=== PATIENT | female | born 1995 | race Caucasian/White ===

== ENCOUNTER 2016-10-09 14:34 | Emergency (ER) | payer OTHER ==
[2016-10-09 14:38] VITALS: BP 125/71; BMI 35.6
--- NOTE | 2016-10-09 14:47 | DR.GENAD ---
HPI - HPI Comment HPI Comment: N/V/D TIMES 3 DAYS. LOWER ABDOMINAL PAIN TODAY. SLIGHT DYSURIA. PATIENT ALSO HAVIVBG VAGINAL DISCHARGE. SYMTOMS WORSE TODAY. PATIENT IS WEAK. - Complaint/Symptoms Chief Complaint Doctors Comments: N/V/D FOR 3 DAYS AND LOWER ABD PAIN AND VAGINAL DISCHARGE. Chief Complaint:: 23 6/7 OB C/O N/V/D X 2-3 DAYS WITH A VAGINAL DISCHARGE AND DYSURIA. PT. ALSO C/O LOWER ABDOMINAL PAIN AND LOWER BACK PAIN. DENIES VAGINAL BLEEDING. - Nurses notes reviewed Nurses Notes Review: Yes - Source History Provided: Patient - Mode of Arrival Mode of Arrival: Ambulatory - Timing Onset of Chief Complaint: 10/06/16 Came on: Suddenly - Duration Duration: Constant Duration: Days - Severity Severity: Moderate PMH - PMH Past Medical History: No Past Surgical History: Yes Surgical History: - Family History History of Family Medical Conditions: Yes Family Medical History: Diabetes Mellitus, Cancer, Coronary Artery Disease, Sudden Cardiac - Social History Does patient currently use any type of tobacco product: No Have you used tobacco products in the last 12 months: No Type of Tobacco Use: None Does any household member use tobacco: No Alcohol Use: None Do you use any recreational Drugs:: No Lives With: Family Lives Where: Home - infectious screening In the last 2 months have you had wt loss of >10#?: NO Have you had fever, night sweats or hemotysis?: No Have you traveled outside the country in the last 6 months?: No Isolation: Standard ROS - Review of Systems Constitutional: Weakness, Fatigue Eyes: No Symptoms Reported. negative: Eye Pain, Discharge ENTM: No Symptoms Reported. negative: Ear Pain, Nose Discharge, Nose Congestion , Throat Pain Respiratoy: No Symptoms Reported. negative: Productive Cough, Non-Productive Cough, Short of Breath, Wheezing, Hemoptysis Cardiovascular: negative: Chest Pain Gastrointestinal/Abdominal: Abdominal Pain, Nausea, Vomiting Genitourinary: No Symptoms Reported. negative: Dysuria, Frequency, Hematuria Neurological: Weakness, Dizziness. negative: Headache Musculoskeletal: Muscle Pain Integumentary: Dryness. negative: Bruises, Juandice Hematologic/Lymphatic: No Symptoms Reported Endocrine: No Symptoms Reported All Other Systems: Reviewed and Negative PE - Vital Signs Vitals: Pulse Rate 111 Respiratory Rate 18 Blood Pressure [Left Arm] 119/66 Blood Pressure [Right Arm] 113/66 Blood Pressure 125/71 O2 Sat by Pulse Oximetry 99 - General Limitations: No Limitations General Appearance: Alert - Head Head Exam: Normal Inspection - Eyes Eye exam: Normal Appearance - ENT ENT Exam: Normal External Ear Exam External Ear Exam: Normal External Inspection TM/Canal Exam: Bilateral Normal Nose Exam: Normal Nose Exam Mouth Exam: Normal Inspection Throat Exam: Normal Inspection - Neck Neck Exam: Trachea Midline - Chest Chest Inspection: Symmetric Chest Wall Rise - Respiratory Respiratory Exam: Normal Lung Sounds Bilat Respiratory Exam: Bilateral Clear to Auscultation - Cardiovascular Cardiovascular Exam: Regular Rate, Normal Rhythm, Normal Heart Sounds - Abdominal Exam Abdominal Exam: Normal Bowel Sounds, Soft, Tenderness Abdominal Tenderness: RLQ, LLQ, Suprapubic - Extremities Extremities Exam: Normal Inspection - Back Back Exam: Normal Inspection - Neurologic Neurological Exam: Alert, Oriented X3 - Psychiatric Psychiatric Exam: Normal Affect, Normal Mood - Skin Skin Exam: Normal Color MDM - Differential Diagnosis Differential Diagnosis: ABDOMINAL PAIN DURING , DEHYDRATION, UTI Course - Treatment Treatment: SEE ORDERS. - Education/Counseling Education/Counseling: Patient, Education Educated On: Treatment, Diagnosis, Needs for Follow Up ROR - Labs Reviewed Laboratory Results Reviewed?: Yes Result Diagrams: 10/09/16 15:12 10/09/16 15:12 Laboratory: WBC 13.9 X10^3/uL (3.6-10.0) H 10/09/16 15:12 RBC 3.87 X10^6/uL (3.5-5.4) 10/09/16 15:12 Hgb 10.8 g/dL (12.0-16.0) L 10/09/16 15:12 Hct 31.9 % (36.0-47.0) L 10/09/16 15:12 MCV 82.6 fL (80.0-100.0) 10/09/16 15:12 MCH 27.8 pg (27.0-34.0) 10/09/16 15:12 MCHC 33.7 g/dL (33.0-35.0) 10/09/16 15:12 RDW 13.5 % (11.6-16.5) 10/09/16 15:12 Plt Count 323 X10^3/uL (150.0-450.0) 10/09/16 15:12 MPV 9.1 fL (7.4-11.0) 10/09/16 15:12 Neut % 78.6 % (42.0-75.0) H 10/09/16 15:12 Lymph % 11.2 % (21.0-51.0) L 10/09/16 15:12 Johnson % 6.0 % (0.0-13.0) 10/09/16 15:12 Eos % 3.2 % (0.9-2.9) H 10/09/16 15:12 Baso % 1.0 % (0.2-1.0) 10/09/16 15:12 Neut # 10.9 x10^3/uL (2.2-4.8) H 10/09/16 15:12 Lymph # 1.6 X10^3/uL (1.3-2.9) 10/09/16 15:12 Johnson # 0.8 x10^3/uL (0.3-0.8) 10/09/16 15:12 Eos # 0.4 x10^3/uL (0.0-0.2) H 10/09/16 15:12 Baso # 0.1 X10^3/uL (0.0-0.1) 10/09/16 15:12 Absolute Nucleated RBC 0.0 /100WBC 10/09/16 15:12 Sodium 137 mmol/L (136-145) 10/09/16 15:12 Corrected Sodium TNP 10/09/16 15:12 Potassium 4.0 mmol/L (3.5-5.1) 10/09/16 15:12 Chloride 104 mmol/L (98-107) 10/09/16 15:12 Carbon Dioxide 25.4 mmol/L (21-32) 10/09/16 15:12 BUN 4 mg/dL (7-18) L 10/09/16 15:12 Creatinine 0.56 mg/dL (0.55-1.02) 10/09/16 15:12 Est GFR (MDRD) Af Amer > 60 (>60) 10/09/16 15:12 Est GFR (MDRD) Non-Af > 60 (>60) 10/09/16 15:12 Glucose 78 mg/dL (65-99) 10/09/16 15:12 Calcium 8.4 mg/dL (8.5-10.1) L 10/09/16 15:12 Corrected Calcium 9.4 mg/dL (8.5-10.1) 10/09/16 15:12 Total Bilirubin 0.10 mg/dL (0.2-1.0) L 10/09/16 15:12 AST 16 Units/L (15-37) 10/09/16 15:12 ALT 16 Units/L (12-78) 10/09/16 15:12 Alkaline Phosphatase 86 Units/L (46-116) 10/09/16 15:12 Total Protein 7.2 g/dL (6.4-8.2) 10/09/16 15:12 Albumin 2.8 g/dL (3.4-5.0) L 10/09/16 15:12 Globulin 4.4 g/dL (2.5-4.5) 10/09/16 15:12 Albumin/Globulin Ratio 0.6 Ratio (1.1-2.1) L 10/09/16 15:12 HCG, Quant 21494 mIU/mL (0-6) H 10/09/16 15:12 Specimen Type Clean catch urine 10/09/16 14:50 Urine Color Yellow (YELLOW) 10/09/16 14:50 Urine Appearance Cloudy (CLEAR) 10/09/16 14:50 Urine pH 5.0 (5.0 - 8.0) 10/09/16 14:50 Ur Specific [place] 1.030 (1.000-1.030) 10/09/16 14:50 Urine Protein 4+ (NEGATIVE) 10/09/16 14:50 Urine Glucose (UA) Negative (NEGATIVE) 10/09/16 14:50 Urine Ketones Negative (NEGATIVE) 10/09/16 14:50 Urine Occult Blood 5+ (NEGATIVE) 10/09/16 14:50 Urine Nitrite Negative (NEGATIVE) 10/09/16 14:50 Urine Bilirubin Negative (NEGATIVE) 10/09/16 14:50 Urine Urobilinogen 1+ (NORMAL) 10/09/16 14:50 Ur Leukocyte Esterase 3+ (NEGATIVE) 10/09/16 14:50 Urine RBC 6-10 /HPF (NEGATIVE) 10/09/16 14:50 Urine WBC 25-50 /HPF (NEGATIVE) 10/09/16 14:50 Ur Squamous Epith Cells Rare /HPF (NEGATIVE) 10/09/16 14:50 Calcium Oxalate Crystal Few /HPF (NEGATIVE) 10/09/16 14:50 Urine Bacteria Trace /HPF (NEGATIVE) 10/09/16 14:50 Ur Culture Indicated? Yes/culture set up 10/09/16 14:50 - XRAY XRAY Interpreted by: Radiologist XRAY Findings: REPORT DISCUSS WOITH PATIENT. - Diagnosis Discharge Problem: Abdominal pain affecting , Dehydration Gastritis Qualifiers: Gastritis type: other gastritis Chronicity: acute Gastritis bleeding: without bleeding Qualified Code(s): K29.00 - Acute gastritis without bleeding UTI (urinary tract infection) Qualifiers: Urinary tract infection type: site unspecified Hematuria presence: without hematuria Qualified Code(s): N39.0 - Urinary tract infection, site not specified - Discharge Plan Disposition: 01 HOME, SELF-CARE Condition: Stable Prescriptions: Nitrofurantoin Macro [Macrobid Cap 100 mg Ext Rel] 100 mg PO BID #14 cap - Follow ups/Referrals Follow ups/Referrals: IRENA BRADEN [Primary Care Provider] - 3 days - Instructions Instructions: Urinary Tract Infection, [id number], Dehydration, Adult, Easy- to-Read, Abdominal Pain During , [id number] Additional Instructions: RETURN TO ED IF WORSE.
[2016-10-09 15:06] LABS: BILIRUBIN,URINE NEGATIVE (NEGATIVE); BLOOD/HEMOGLOBIN,URINE 5+ (NEGATIVE); GLUCOSE, URINE NEGATIVE (NEGATIVE); KETONES,URINE NEGATIVE (NEGATIVE); LEUKOCYTE ESTERASE ,URINE 3+ (NEGATIVE); NITRITES,URINE NEGATIVE (NEGATIVE); PROTEIN,URINE 4+ (NEGATIVE); UROBILINOGEN,URINE 1+ (NORMAL)
[2016-10-09 15:14] LABS: APPEARANCE,URINE CLOUDY (CLEAR); BACTERIA,URINE TRACE /HPF (NEGATIVE); CALCIUM OXALATE CRYSTALS,UR FEW /HPF (NEGATIVE); COLOR,URINE YELLOW (YELLOW); SQUAMOUS EPITHELIAL CELL,UR RARE /HPF (NEGATIVE)
[2016-10-09 15:23] LABS: BASOPHILS # (AUTO) 0.1 X10^3/uL (0.0-0.1); EOSINOPHILS # (AUTO) 0.4 x10^3/uL (0.0-0.2); EOSINOPHILS % (AUTO) 3.2 % (0.9-2.9); HEMATOCRIT 31.9 % (36.0-47.0); HEMOGLOBIN 10.8 g/dL (12.0-16.0); LYMPHOCYTES # (AUTO) 1.6 X10^3/uL (1.3-2.9); LYMPHOCYTES % (AUTO) 11.2 % (21.0-51.0); MEAN CORPUSCULAR HEMOGLOBIN 27.8 pg (27.0-34.0); MEAN CORPUSCULAR HGB CONC 33.7 g/dL (33.0-35.0); MEAN CORPUSCULAR VOLUME 82.6 fL (80.0-100.0); MEAN PLATELET VOLUME 9.1 fL (7.4-11.0); MONOCYTES # (AUTO) 0.8 x10^3/uL (0.3-0.8); NEUTROPHILS # (AUTO) 10.9 x10^3/uL (2.2-4.8); NEUTROPHILS % (AUTO) 78.6 % (42.0-75.0); PLATELET COUNT 323 X10^3/uL (150.0-450.0); RED BLOOD COUNT 3.87 X10^6/uL (3.5-5.4); RED CELL DISTRIBUTION WIDTH 13.5 % (11.6-16.5); WHITE BLOOD COUNT 13.9 X10^3/uL (3.6-10.0)
[2016-10-09 15:32] LABS: ALANINE AMINOTRANSFERASE 16 Units/L (12-78); ALBUMIN 2.8 g/dL (3.4-5.0); ALKALINE PHOSPHATASE 86 Units/L (46-116); ASPARTATE AMINO TRANSFERASE 16 Units/L (15-37); BLOOD UREA NITROGEN 4 mg/dL (7-18); CALCIUM 8.4 mg/dL (8.5-10.1); CARBON DIOXIDE 25.4 mmol/L (21-32); CHLORIDE 104 mmol/L (98-107); COR CA(FOR HYPOALB) 9.4 mg/dL (8.5-10.1); CREATININE 0.56 mg/dL (0.55-1.02); GLUCOSE 78 mg/dL (65-99); SODIUM 137 mmol/L (136-145); TOTAL PROTEIN 7.2 g/dL (6.4-8.2); eGFR BLACK RACES > 60 (>60); eGFR NON BLACK RACES > 60 (>60)
[2016-10-09] MEDS ORDERED: NS 1000 ML 1,000 ML IV ONE (15:43)
[2016-10-09] MEDS ORDERED: ROCEPHIN VIAL 1 GM 1 GM in NS 50 ML IV + SPIKE MINIBAG* 50 ML IV ONE (15:50)
[2016-10-09 15:59] LABS: HCG,QUANTITATIVE 14219 mIU/mL (0-6)
[2016-10-09] MEDS ORDERED: ROCEPHIN 1 GM IV PREMIX * OUT OF STOCK 50 ML IV ONE (16:12)
[2016-10-09] MEDS ORDERED: NS 1000 ML 1,000 ML ONE (16:13)
[2016-10-09] MEDS ORDERED: ADVIL SUSP 100 MG/5 ML PO ONE (16:37)
--- NOTE | 2016-10-09 17:06 | US ---
OB ultrasound greater than 14 weeks Indication: Abdominal pain Comparison: None available Technique: Multiple grayscale and color flow Doppler images of the pelvis were obtained with focused evaluation of the fetus. Findings: A viable single intrauterine is identified with heart tones of 148 beats per minute. A breech presentation is observed with a anterior and fundal placenta. No retroplacental or subchron ic hemorrhage identified. Normal 3 vessel cord insertion is noted. Value Estimated Gestational Age BPD 5.6 cm 23 weeks, 2 days HC 21.3 cm 23 weeks, 3 days AC 18.4 cm 23 weeks, 2 days FL 4.1 cm 23weeks, 2 days IMPRESSION: A viable single intrauterine with an average ultrasound age of 23 weeks, 2 days correspond to an estimated date of delivery of DATE. No retroplacental or subchronic hemorrhage. Reported By:
== END 2016-10-09 17:57 | disposition home or self-care (01) ==
LOC: ER 14:40
DX: R10.84 Generalized abdominal pain (principal); Z3A.23 23 weeks gestation of pregnancy; N39.0 Urinary tract infection, site not specified; K29.00 Acute gastritis without bleeding; E86.0 Dehydration
CPT/HCPCS: 36415; 76815; 80053; 81001; 84702; 85025; 87086; 96365; 96374; 99283; 99284; A4222; J0696

== ENCOUNTER 2016-12-17 23:45 | Emergency (ER) | payer OTHER ==
[2016-12-17 23:50] VITALS: BP 131/98; BMI 37.6
[2016-12-18 00:21] LABS: BILIRUBIN,URINE NEGATIVE (NEGATIVE); BLOOD/HEMOGLOBIN,URINE NEGATIVE (NEGATIVE); GLUCOSE, URINE NEGATIVE (NEGATIVE); KETONES,URINE NEGATIVE (NEGATIVE); LEUKOCYTE ESTERASE ,URINE 1+ (NEGATIVE); NITRITES,URINE NEGATIVE (NEGATIVE); PROTEIN,URINE 1+ (NEGATIVE); UROBILINOGEN,URINE NORMAL (NORMAL)
[2016-12-18 00:28] LABS: APPEARANCE,URINE CLEAR (CLEAR); BACTERIA,URINE TRACE /HPF (NEGATIVE); COLOR,URINE YELLOW (YELLOW); RBC,URINE 0-3 /HPF (NEGATIVE); SQUAMOUS EPITHELIAL CELL,UR MANY /HPF (NEGATIVE)
[2016-12-18 00:32] LABS: AMNISURE ROM TEST NO MEMBRANES RUPTURE (NO RUPTURE)
== END 2016-12-18 01:38 | disposition home or self-care (01) ==
LOC: ER 23:45
DX: O60.03 Preterm labor without delivery, third trimester (principal)
CPT/HCPCS: 81001; 84112; 99284

== ENCOUNTER 2017-01-04 14:44 | Emergency (ER) | payer OTHER ==
[2017-01-04] MEDS ORDERED: NS 1000 ML 1,000 ML ONE (15:01)
[2017-01-04] MEDS ORDERED: NS 1000 ML 1,000 ML IV ONE (15:11)
--- NOTE | 2017-01-04 15:13 | DR.GENAD ---
PMH - PMH Past Surgical History: Yes Surgical History: - Family History Family Medical History: Diabetes Mellitus, Cancer, [place], Hypertension - Social History Do you use any recreational Drugs:: No PE - Vital Signs Vitals: Blood Pressure [Left Arm] 119/66 Blood Pressure [Right Arm] 113/66 Blood Pressure 131/98 - Discharge Plan Condition: Stable - Follow ups/Referrals Follow ups/Referrals: IRENA BRADEN [Primary Care Provider] - 3 days - Instructions
[2017-01-04 15:14] VITALS: BP 143/92; BMI 39.1
[2017-01-04 15:25] LABS: BILIRUBIN,URINE NEGATIVE (NEGATIVE); BLOOD/HEMOGLOBIN,URINE 1+ (NEGATIVE); GLUCOSE, URINE NEGATIVE (NEGATIVE); KETONES,URINE NEGATIVE (NEGATIVE); LEUKOCYTE ESTERASE ,URINE 2+ (NEGATIVE); NITRITES,URINE NEGATIVE (NEGATIVE); PH,URINE 6.5 (5.0 - 8.0); PROTEIN,URINE 1+ (NEGATIVE); UROBILINOGEN,URINE NORMAL (NORMAL)
[2017-01-04 15:32] LABS: APPEARANCE,URINE CLOUDY (CLEAR); BACTERIA,URINE 3+ /HPF (NEGATIVE); COLOR,URINE YELLOW (YELLOW); SQUAMOUS EPITHELIAL CELL,UR FEW /HPF (NEGATIVE)
[2017-01-04 15:33] LABS: BASOPHILS # (AUTO) 0.1 X10^3/uL (0.0-0.1); BASOPHILS % (AUTO) 0.5 % (0.2-1.0); EOSINOPHILS # (AUTO) 0.3 x10^3/uL (0.0-0.2); EOSINOPHILS % (AUTO) 2.7 % (0.9-2.9); HEMATOCRIT 28.2 % (36.0-47.0); HEMOGLOBIN 9.4 g/dL (12.0-16.0); LYMPHOCYTES # (AUTO) 1.5 X10^3/uL (1.3-2.9); LYMPHOCYTES % (AUTO) 13.7 % (21.0-51.0); MEAN CORPUSCULAR HEMOGLOBIN 26.4 pg (27.0-34.0); MEAN CORPUSCULAR HGB CONC 33.3 g/dL (33.0-35.0); MEAN CORPUSCULAR VOLUME 79.3 fL (80.0-100.0); MEAN PLATELET VOLUME 9.6 fL (7.4-11.0); MONOCYTES # (AUTO) 0.9 x10^3/uL (0.3-0.8); NEUTROPHILS # (AUTO) 8.4 x10^3/uL (2.2-4.8); NEUTROPHILS % (AUTO) 75.1 % (42.0-75.0); PLATELET COUNT 265 X10^3/uL (150.0-450.0); RED BLOOD COUNT 3.56 X10^6/uL (3.5-5.4); RED CELL DISTRIBUTION WIDTH 14.3 % (11.6-16.5); WHITE BLOOD COUNT 11.1 X10^3/uL (3.6-10.0)
[2017-01-04 15:48] LABS: ALANINE AMINOTRANSFERASE 15 Units/L (12-78); ALBUMIN 2.5 g/dL (3.4-5.0); ALKALINE PHOSPHATASE 109 Units/L (46-116); ASPARTATE AMINO TRANSFERASE 18 Units/L (15-37); BLOOD UREA NITROGEN 6 mg/dL (7-18); CALCIUM 8.8 mg/dL (8.5-10.1); CHLORIDE 108 mmol/L (98-107); CREATININE 0.76 mg/dL (0.55-1.02); LACTATE DEHYDROGENASE 162 Units/L (81-234); SODIUM 139 mmol/L (136-145); TOTAL PROTEIN 6.6 g/dL (6.4-8.2); URIC ACID 4.9 mg/dL (2.6-6.0); eGFR BLACK RACES > 60 (>60); eGFR NON BLACK RACES > 60 (>60)
[2017-01-04] MEDS ORDERED: BRETHINE INJ 1 MG VIAL SC ONE ×2 (15:55→15:56)
== END 2017-01-04 16:15 | disposition home or self-care (01) ==
LOC: ER 14:59
DX: O60.03 Preterm labor without delivery, third trimester (principal); Z3A.36 36 weeks gestation of pregnancy
CPT/HCPCS: 36415; 80053; 81001; 83615; 84550; 85025; 85384; 85610; 85730; 87086; 96365; 96372; 99284; A4222; J3105

== ENCOUNTER → 2017-01-20 | Outpatient (CLI) | payer OTHER ==
[2017-01-04 15:14] VITALS: BP 143/92
[2017-01-20 11:55] LABS: BASOPHILS % (AUTO) 0.3 % (0.2-1.0); EOSINOPHILS # (AUTO) 0.1 x10^3/uL (0.0-0.2); EOSINOPHILS % (AUTO) 1.4 % (0.9-2.9); HEMATOCRIT 29.9 % (36.0-47.0); HEMOGLOBIN 9.8 g/dL (12.0-16.0); LYMPHOCYTES # (AUTO) 1.5 X10^3/uL (1.3-2.9); LYMPHOCYTES % (AUTO) 14.4 % (21.0-51.0); MEAN CORPUSCULAR HEMOGLOBIN 25.8 pg (27.0-34.0); MEAN CORPUSCULAR HGB CONC 32.9 g/dL (33.0-35.0); MEAN CORPUSCULAR VOLUME 78.5 fL (80.0-100.0); MONOCYTES # (AUTO) 0.5 x10^3/uL (0.3-0.8); MONOCYTES % (AUTO) 5.3 % (0.0-13.0); NEUTROPHILS # (AUTO) 8.1 x10^3/uL (2.2-4.8); NEUTROPHILS % (AUTO) 78.6 % (42.0-75.0); PLATELET COUNT 240 X10^3/uL (150.0-450.0); RED BLOOD COUNT 3.81 X10^6/uL (3.5-5.4); RED CELL DISTRIBUTION WIDTH 14.7 % (11.6-16.5); WHITE BLOOD COUNT 10.2 X10^3/uL (3.6-10.0)
[2017-01-20 12:00] LABS: BILIRUBIN,URINE NEGATIVE (NEGATIVE); BLOOD/HEMOGLOBIN,URINE NEGATIVE (NEGATIVE); GLUCOSE, URINE 1+ (NEGATIVE); KETONES,URINE NEGATIVE (NEGATIVE); LEUKOCYTE ESTERASE ,URINE 1+ (NEGATIVE); NITRITES,URINE NEGATIVE (NEGATIVE); PROTEIN,URINE 2+ (NEGATIVE); UROBILINOGEN,URINE NORMAL (NORMAL)
[2017-01-20 12:00] LABS: BLOOD UREA NITROGEN 6 mg/dL (7-18); CARBON DIOXIDE 23.6 mmol/L (21-32); CHLORIDE 105 mmol/L (98-107); CREATININE 0.75 mg/dL (0.55-1.02); SODIUM 140 mmol/L (136-145); eGFR BLACK RACES > 60 (>60); eGFR NON BLACK RACES > 60 (>60)
[2017-01-20 12:04] LABS: PLATELET MORPHOLOGY COMMENT NORMAL (NORMAL)
[2017-01-20 12:16] LABS: APPEARANCE,URINE CLOUDY (CLEAR); COLOR,URINE YELLOW (YELLOW)
[2017-01-20 12:21] LABS: RBC,URINE RARE /HPF (NEGATIVE)
[2017-01-20 12:22] LABS: AMORPHOUS SEDIMENT,UR 3+ /HPF (NEGATIVE); BACTERIA,URINE 1+ /HPF (NEGATIVE); HYALINE CASTS, URINE RARE /LPF (NEGATIVE); MUCUS,URINE MODERATE /HPF (NEGATIVE); SQUAMOUS EPITHELIAL CELL,UR MANY /HPF (NEGATIVE)
== END ==
LOC: LAB 11:06
PROVIDERS: ATTEND Specialist
DX: Z01.818 Encounter for other preprocedural examination (principal); Z01.812 Encounter for preprocedural laboratory examination; Z34.83 Encounter for supervision of other normal pregnancy, third trimester
CPT/HCPCS: 36415; 80048; 81001; 85025; 85610; 85730; 86592; 86850; 86900; 86901; 87086

== ENCOUNTER 2017-01-23 06:20 | Inpatient (IN) | payer OTHER ==
[2017-01-23] MEDS ORDERED: LR 1000 ML IV 1,000 ML IV ONE ×3 (06:21→08:25)
[2017-01-23] MEDS ORDERED: ANCEF VIAL 1 GM ONE (06:22)
[2017-01-23] MEDS ORDERED: NS 50 ML IV + SPIKE MINIBAG* 50 ML IV ONE (06:23)
[2017-01-23] MEDS ORDERED: ANCEF VIAL 1 GM 1 GM in NS 50 ML IV + SPIKE MINIBAG* 50 ML IV PRN (06:53)
[2017-01-23] MEDS ORDERED: D5 1/2 NS 1000 ML 1,000 ML IV SCH (06:53)
[2017-01-23] MEDS ORDERED: D5 1/2 NS 1L W PITOCIN 20 UNITS/L 20 UNITS/1,000 ML BAG IV ONE (07:38)
[2017-01-23] MEDS ORDERED: DURAMORPH ONE (07:38)
[2017-01-23] MEDS ORDERED: NS IRRIGATION 1000 ML 1,000 ML IR ONE (08:00)
[2017-01-23 08:12] LABS: BILIRUBIN,URINE NEGATIVE (NEGATIVE); BLOOD/HEMOGLOBIN,URINE NEGATIVE (NEGATIVE); GLUCOSE, URINE NEGATIVE (NEGATIVE); KETONES,URINE NEGATIVE (NEGATIVE); LEUKOCYTE ESTERASE ,URINE 1+ (NEGATIVE); NITRITES,URINE NEGATIVE (NEGATIVE); PROTEIN,URINE 1+ (NEGATIVE); UROBILINOGEN,URINE NORMAL (NORMAL)
[2017-01-23 08:34] LABS: APPEARANCE,URINE CLOUDY (CLEAR); COLOR,URINE YELLOW (YELLOW); RBC,URINE RARE /HPF (NEGATIVE)
[2017-01-23 08:36] LABS: AMORPHOUS SEDIMENT,UR TRACE /HPF (NEGATIVE); BACTERIA,URINE NEGATIVE /HPF (NEGATIVE); MUCUS,URINE FEW /HPF (NEGATIVE); RENAL EPITHELIAL CELLS,URINE FEW /HPF (NEGATIVE); SQUAMOUS EPITHELIAL CELL,UR FEW /HPF (NEGATIVE)
[2017-01-23] MEDS ORDERED: DILAUDID INJ IVP PRN (09:02)
[2017-01-23] MEDS ORDERED: BENADRYL INJ 50 MG VIAL IVP PRN ×2 (09:02→09:23)
[2017-01-23] MEDS ORDERED: PHENERGAN INJ 25 MG IVP PRN (09:02)
[2017-01-23] MEDS ORDERED: ZOFRAN INJ 4 MG VIAL IVP PRN ×2 (09:02→09:23)
[2017-01-23] MEDS ORDERED: REGLAN INJ 10 MG VIAL IVP PRN ×2 (09:02→09:23)
[2017-01-23] MEDS ORDERED: TORADOL 30 MG VIAL IVP PRN (09:23)
[2017-01-23] MEDS ORDERED: MYLICON TAB 80 MG CHEW PO PRN (09:23)
[2017-01-23] MEDS ORDERED: PERCOCET TAB 5/325 MG PO PRN (09:23)
[2017-01-23] MEDS ORDERED: D5 1/2 NS 1000 ML 1,000 ML with PITOCIN 20 UNITS IV SCH ×2 (09:23)
[2017-01-23] MEDS ORDERED: ADACEL TDaP IM ONE (09:23)
[2017-01-23] MEDS ORDERED: NARCAN INJ IVP PRN (09:23)
[2017-01-23] MEDS: ZANTAC PO SCH ×2 (10:30→20:19)
[2017-01-23] MEDS: PRENATAL PLUS PO SCH (10:30)
[2017-01-23] MEDS ORDERED: DIPRIVAN VIAL ONE (14:46)
[2017-01-23] MEDS ORDERED: ZOFRAN INJ 4 MG VIAL ONE (14:46)
[2017-01-23] MEDS ORDERED: EPHEDRINE SULFATE INJ ONE (14:46)
[2017-01-23] MEDS ORDERED: PITOCIN ONE (14:46)
[2017-01-23] MEDS ORDERED: NEO-SYNEPHRINE INJ ONE (14:46)
[2017-01-23] MEDS ORDERED: XYLOCAINE 2 % (PLAIN) ONE (14:46)
[2017-01-24 05:21] LABS: HEMATOCRIT 26.3 % (36.0-47.0); HEMOGLOBIN 8.6 g/dL (12.0-16.0)
[2017-01-24] MEDS ORDERED: MOTRIN TAB 800 MG PO PRN (07:38)
[2017-01-24] MEDS: PERCOCET TAB 5/325 MG PO PRN ×2 (08:55→15:47)
[2017-01-24] MEDS: HEMOCYTE-PLUS PO SCH ×2 (08:55)
[2017-01-24] MEDS: ZANTAC PO SCH ×2 (08:55→20:08)
[2017-01-24] MEDS: PRENATAL PLUS PO SCH (08:55)
[2017-01-24] MEDS: COLACE CAP 100 MG PO SCH ×2 (08:55→20:08)
[2017-01-24] MEDS: BACTROBAN OINT TOP SCH ×2 (13:00→22:23)
[2017-01-25] MEDS: BACTROBAN OINT TOP SCH (05:32)
[2017-01-25] MEDS: COLACE CAP 100 MG PO SCH (08:32)
[2017-01-25] MEDS: ZANTAC PO SCH (08:32)
[2017-01-25] MEDS: PRENATAL PLUS PO SCH (08:32)
[2017-01-25] MEDS: HEMOCYTE-PLUS PO SCH (08:32)
[2017-01-25 08:43] VITALS: BP 114/71
== END 2017-01-25 10:30 | disposition home or self-care (01) | DRG 765 ==
LOC: LD 06:20 → MED/SURG 09:28
PROVIDERS: ADMIT Specialist; ATTEND Specialist
PROC: 10D00Z1 Extraction of Products of Conception, Low, Open Approach (ICD-10-PCS; principal; 2017-01-23 07:30)
DX: O40.3XX0 Polyhydramnios, third trimester, not applicable or unspecified (principal); Z37.0 Single live birth; O34.211 Maternal care for low transverse scar from previous cesarean delivery; N85.8 Other specified noninflammatory disorders of uterus; O98.311 Other infections with a predominantly sexual mode of transmission complicating pregnancy, first trimester; O99.824 Streptococcus B carrier state complicating childbirth; B95.1 Streptococcus, group B, as the cause of diseases classified elsewhere; N87.0 Mild cervical dysplasia; O99.89 Other specified diseases and conditions complicating pregnancy, childbirth and the puerperium; O33.5XX0 Maternal care for disproportion due to unusually large fetus, not applicable or unspecified; O99.013 Anemia complicating pregnancy, third trimester; D50.8 Other iron deficiency anemias; Z3A.38 38 weeks gestation of pregnancy
CPT/HCPCS: 36415; 80048; 80307; 81001; 85014; 85018; 85025; 85610; 85730; 86592; 86850; 86900; 86901; 87086; 94640; A4216; A4222; S0197; G0434; J0690; J2001; J2310; J2370; J2405; J2590; J2765; J3490; J7120

== ENCOUNTER 2017-01-26 22:42 | Emergency (ER) | payer OTHER ==
[2017-01-26 22:51] VITALS: BP 150/84; BMI 33.8
[2017-01-26] MEDS ORDERED: BENADRYL INJ 50 MG VIAL IM ONE (23:43)
--- NOTE | 2017-01-26 23:44 | DR.GENAD ---
HPI - PCP Primary Care Physician: ANDER - Complaint/Symptoms Chief Complaint:: RASH TO ABD ONSET WED Self Treatment fo Chief Complaint: CALAMINE LOTION, BENADRYL, - Source History Provided: Patient - Mode of Arrival Mode of Arrival: Ambulatory - Timing Onset of Chief Complaint: 01/25/17 PMH - PMH Past Medical History: No Past Surgical History: Yes Surgical History: - Family History History of Family Medical Conditions: Yes Family Medical History: Diabetes Mellitus, Coronary Artery Disease, Hypertension - Social History Does patient currently use any type of tobacco product: No Have you used tobacco products in the last 12 months: No Type of Tobacco Use: None Does any household member use tobacco: No Alcohol Use: None Do you use any recreational Drugs:: No Lives With: Family Lives Where: Home - infectious screening In the last 2 months have you had wt loss of >10#?: NO Have you had fever, night sweats or hemotysis?: No Have you traveled outside the country in the last 6 months?: No Isolation: Standard ROS - Review of Systems Constitutional: No Symptoms Reported Eyes: No Symptoms Reported ENTM: No Symptoms Reported Respiratoy: No Symptoms Reported Cardiovascular: No Symptoms Reported Gastrointestinal/Abdominal: No Symptoms Reported Genitourinary: No Symptoms Reported Neurological: No Symptoms Reported Musculoskeletal: No Symptoms Reported Integumentary: Rash (abdominal) Hematologic/Lymphatic: No Symptoms Reported Endocrine: No Symptoms Reported Psychiatric: No Symptoms Reported All Other Systems: Reviewed and Negative PE - Vital Signs Vitals: Temperature 98.1 F Pulse Rate 84 Respiratory Rate 16 Blood Pressure [Left Arm] 114/71 Blood Pressure [Right Arm] 113/66 Blood Pressure 150/84 O2 Sat by Pulse Oximetry 100 - General Limitations: No Limitations General Appearance: Alert, In No Apparent Distress - Head Head Exam: Normal Inspection, Atraumatic - Eyes Eye exam: Normal Appearance, PERRL, EOMI - ENT ENT Exam: Normal Exam External Ear Exam: Normal External Inspection TM/Canal Exam: Bilateral Normal Nose Exam: Normal Nose Exam Mouth Exam: Normal Inspection Throat Exam: Normal Inspection - Neck Neck Exam: Normal Inspection, Full ROM - Chest Chest Inspection: Normal Inspection - Respiratory Respiratory Exam: Normal Lung Sounds Bilat Respiratory Exam: Bilateral Clear to Auscultation - Cardiovascular Cardiovascular Exam: Regular Rate, Normal Rhythm - Abdominal Exam Abdominal Exam: Normal Inspection, Normal Bowel Sounds Abdominal Tenderness: negative: RUQ, RLQ, LUQ, LLQ, Epigastrium, Suprapubic, Diffuse, Mild, Moderate, Severe, Other - Extremities Extremities Exam: Normal Inspection - Back Back Exam: Normal Inspection, Full ROM - Neurologic Neurological Exam: Alert, Oriented X3, CN II-XII Intact - Psychiatric Psychiatric Exam: Normal Affect, Normal Mood - Skin Skin Exam: Warm, Dry, Intact, Rash (abdominal erythematus macular rash) - Diagnosis Discharge Problem: Dermatitis - Discharge Plan Condition: Stable - Follow ups/Referrals Follow ups/Referrals: IRENA BRADEN [Primary Care Provider] - 3 days - Instructions
[2017-01-26] MEDS ORDERED: BENADRYL INJ 50 MG VIAL ONE (23:45)
== END 2017-01-27 | disposition home or self-care (01) ==
LOC: ER 22:55
DX: L30.8 Other specified dermatitis (principal)
CPT/HCPCS: 96372; 99282; J1200

== ENCOUNTER 2017-05-30 08:57 | Emergency (ER) | payer SELFPAY ==
[2017-05-30 09:00] VITALS: BP 124/69; BMI 35.8
--- NOTE | 2017-05-30 09:23 | DR.URIAD ---
HPI - Time Seen Time seen: 09:18 - PCP Primary Care Physician: NFD - Complaint Chief Complaint Doctors Comments: Patient children were diagnosed on last night for influenza. Patient states that she was sent home from work due to her conges,tion,cough and generalized body aches. Chief Complaint:: PT. C/O SORE THROAT, COUGHING, FEVER, BODY ACHES. BOTH OF HER CHILDREN TESTED POSTED FOR INFLUENZA A RECENTLY. - Source History Provided: Patient - Mode of Arrival Mode of Arrival: Ambulatory - Timing Onset of Chief Complaint: 05/25/17 PMH - PMH Past Medical History: No Past Surgical History: Yes Surgical History: - Family History History of Family Medical Conditions: Yes Family Medical History: Diabetes Mellitus, Coronary Artery Disease, Hypertension - Social History Does patient currently use any type of tobacco product: No Have you used tobacco products in the last 12 months: No Type of Tobacco Use: None Does any household member use tobacco: No Alcohol Use: None Do you use any recreational Drugs:: No Lives With: Family Lives Where: Home - infectious screening In the last 2 months have you had wt loss of >10#?: NO Have you had fever, night sweats or hemotysis?: No Have you traveled outside the country in the last 6 months?: No Isolation: Standard ROS - Review of Systems Constitutional: Chills, Weakness Eyes: No Symptoms Reported ENTM: No Symptoms Reported Respiratoy: No Symptoms Reported Cardiovascular: No Symptoms Reported Gastrointestinal/Abdominal: No Symptoms Reported Genitourinary: No Symptoms Reported Neurological: No Symptoms Reported Musculoskeletal: Joint Pain Integumentary: No Symptoms Reported Hematologic/Lymphatic: No Symptoms Reported Endocrine: No Symptoms Reported Psychiatric: No Symptoms Reported All Other Systems: Reviewed and Negative PE - Vital Signs Vitals: Temperature 97.8 F Pulse Rate 93 Respiratory Rate 18 Blood Pressure [Left Arm] 114/71 Blood Pressure [Right Arm] 113/66 Blood Pressure 124/69 O2 Sat by Pulse Oximetry 97 - General Limitations: No Limitations General Appearance: Alert - Head Head Exam: Normal Inspection, Atraumatic - Eyes Eye exam: Normal Appearance, PERRL, EOMI - ENT ENT Exam: Normal Exam External Ear Exam: Normal External Inspection TM/Canal Exam: Bilateral Normal Nose Exam: Normal Nose Exam Nasal Speculum Exam: Bilateral Normal Mouth Exam: Normal Inspection Throat Exam: Normal Inspection - Neck Neck Exam: Normal Inspection - Chest Chest Inspection: Normal Inspection - Respiratory Respiratory Exam: Bilateral Clear to Auscultation - Cardiovascular Cardiovascular Exam: Regular Rate, Normal Rhythm - Abdominal Exam Abdominal Exam: Normal Inspection, Normal Bowel Sounds Abdominal Tenderness: negative: RUQ, RLQ, LUQ, LLQ, Epigastrium, Suprapubic, Diffuse, Mild, Moderate, Severe, Other - Extremeties Extremities Exam: Normal Inspection - Back Back Exam: Normal Inspection - Neurologic Neurological Exam: Alert, Oriented X3, CN II-XII Intact - Psychiatric Psychiatric Exam: Normal Affect, Normal Mood - Skin Skin Exam: Warm, Dry Course - Reevaluation 1st: Unchanged ROR - Labs Reviewed Laboratory Results Reviewed?: Yes (influenza test negative) - Diagnosis Discharge Problem: Influenza-like symptoms - Discharge Plan Condition: Stable - Follow ups/Referrals Follow ups/Referrals: NFD,None [Primary Care Provider] - 3 days - Instructions
[2017-05-30] MEDS ORDERED: TORADOL 30 MG VIAL IVP ONE (09:24)
[2017-05-30] MEDS ORDERED: NS 1000 ML 1,000 ML IV ONE (09:24)
[2017-05-30] MEDS ORDERED: TORADOL 30 MG VIAL ONE (09:29)
[2017-05-30] MEDS ORDERED: NS 1000 ML 1,000 ML ONE (09:29)
== END 2017-05-30 10:37 | disposition home or self-care (01) ==
LOC: ER 09:09
DX: J02.9 Acute pharyngitis, unspecified (principal); R05 Cough; R50.9 Fever, unspecified; R53.1 Weakness
CPT/HCPCS: 87502; 87651; 96365; 96374; 99283; A4222; J1885

== ENCOUNTER 2023-08-13 10:49 | Inpatient (IN) ==
[2023-08-13 11:19] VITALS: BMI 41.5
[2023-08-13 11:29] LABS: BILIRUBIN,URINE NEGATIVE (NEGATIVE); BLOOD/HEMOGLOBIN,URINE 2+ (NEGATIVE); GLUCOSE, URINE NEGATIVE (NEGATIVE); KETONES,URINE NEGATIVE (NEGATIVE); LEUKOCYTE ESTERASE ,URINE 3+ (NEGATIVE); NITRITES,URINE NEGATIVE (NEGATIVE); PH,URINE 6.5 (5.0 - 8.0); PROTEIN,URINE 2+ (NEGATIVE); UROBILINOGEN,URINE NORMAL (NORMAL)
[2023-08-13 11:31] LABS: APPEARANCE,URINE HAZY (CLEAR); COLOR,URINE PALE YELLOW (YELLOW)
[2023-08-13 11:48] LABS: BACTERIA,URINE TRACE /HPF (NEGATIVE); RBC,URINE 30-50 /HPF (0-3); SQUAMOUS EPITHELIAL CELL,UR RARE /HPF (NEGATIVE)
[2023-08-13] MEDS: LR 1,000 ML IV 1,000 ML IV ONE ×2 (12:52→14:46)
[2023-08-13] MEDS ORDERED: ZOFRAN INJ 4 MG VIAL IVP PRN ×2 (13:42→15:50)
[2023-08-13 14:08] LABS: HEMATOCRIT 28.9 % (36.0-47.0); HEMOGLOBIN 9.6 g/dL (12.0-16.0); PLATELET COUNT 264 X10^3/uL (150.0-450.0)
[2023-08-13 14:11] LABS: BASOPHILS % (AUTO) 0.4 % (0.2-1.0); EOSINOPHILS # (AUTO) 0.2 x10^3/uL (0.0-0.2); EOSINOPHILS % (AUTO) 1.5 % (0.9-2.9); LYMPHOCYTES # (AUTO) 1.9 X10^3/uL (1.3-2.9); LYMPHOCYTES % (AUTO) 17.7 % (21.0-51.0); MEAN CORPUSCULAR HGB CONC 33.1 g/dL (33.0-35.0); MEAN CORPUSCULAR VOLUME 81.5 fL (80.0-100.0); MEAN PLATELET VOLUME 9.4 fL (7.4-11.0); MONOCYTES # (AUTO) 0.6 x10^3/uL (0.3-0.8); NEUTROPHILS % (AUTO) 74.4 % (42.0-75.0); RED BLOOD COUNT 3.54 X10^6/uL (3.5-5.4); WHITE BLOOD COUNT 10.7 X10^3/uL (3.6-10.0)
[2023-08-13 14:20] LABS: BLOOD UREA NITROGEN 5 mg/dL (7-18); CALCIUM 8.4 mg/dL (8.5-10.1); CARBON DIOXIDE 22.8 mmol/L (21-32); CHLORIDE 105 mmol/L (98-107); CREATININE 0.57 mg/dL (0.55-1.02); GLUCOSE 66 mg/dL (65-99); POTASSIUM 3.6 mmol/L (3.5-5.1); SODIUM 138 mmol/L (136-145); eGFR NON BLACK RACES > 60 (>60)
[2023-08-13] MEDS: DIPRIVAN VIAL 20 ML ONE (14:22)
[2023-08-13 14:29] LABS: RAPID PLASMA REAGIN NONREACTIVE (NONREACTIVE)
[2023-08-13] MEDS: NOZIN NASAL SANITIZER TP ONE (14:31)
[2023-08-13] MEDS: LR 1,000 ML IV 1,000 ML IV SCH (14:31)
[2023-08-13] MEDS: EPHEDRINE SULFATE INJ ONE (14:44)
[2023-08-13] MEDS: ZOFRAN INJ 4 MG VIAL ONE (14:46)
[2023-08-13] MEDS: DILAUDID INJ ONE (14:46)
[2023-08-13] MEDS: PEPCID 20 MG VIAL ONE (14:46)
[2023-08-13] MEDS: REGLAN INJ 10 MG VIAL ONE (14:46)
[2023-08-13] MEDS: NS 100 ML IV 100 ML ONE (14:46)
[2023-08-13] MEDS: ANCEF VIAL 1 GRAM ONE (14:46)
[2023-08-13] MEDS: MARCAINE SPINAL ONE (14:46)
[2023-08-13] MEDS ORDERED: XYLOCAINE 2 % (PLAIN) ONE (14:46)
[2023-08-13] MEDS: PITOCIN ONE (15:09)
[2023-08-13] MEDS ORDERED: REGLAN INJ 10 MG VIAL IVP PRN (15:50)
[2023-08-13] MEDS ORDERED: NARCAN INJ IVP PRN (15:50)
[2023-08-13] MEDS ORDERED: BENADRYL INJ 50 MG VIAL IVP PRN (15:50)
[2023-08-13] MEDS ORDERED: BARHEMSYS INJ IVP PRN (15:50)
[2023-08-13] MEDS ORDERED: D5 1/2 NS 1,000 ML 1,000 ML with PITOCIN 20 UNITS IV SCH (16:00)
[2023-08-13] MEDS: ZOFRAN INJ 4 MG VIAL IVP SCH (17:32)
[2023-08-13] MEDS: REGLAN INJ 10 MG VIAL IVP PRN (18:04)
[2023-08-13] MEDS: D5 1/2 NS 1,000 ML 1,000 ML IV SCH (22:44)
[2023-08-14 04:58] LABS: HEMOGLOBIN 8.8 g/dL (12.0-16.0)
[2023-08-14] MEDS: PRENATAL PLUS PO SCH (08:09)
[2023-08-14] MEDS: LR 1,000 ML IV 1,000 ML IV SCH (10:37)
[2023-08-14] MEDS: BENADRYL INJ 50 MG VIAL IVP ONE (10:37)
[2023-08-14] MEDS: NS 100 ML IV 100 ML with VENOFER 400 MG IV ONE (10:37)
[2023-08-14] MEDS: MORPHINE SULFATE INJ 2 MG INJ IVP PRN (16:23)
[2023-08-15] MEDS: NORCO 7.5/325 MG TAB PO PRN (08:08)
[2023-08-15 10:44] VITALS: BP 123/73; PULSE 85; TEMP 97.8; O2SAT 97
[2023-08-15 12:22] VITALS: RESP 20
== END 2023-08-15 11:25 | disposition home or self-care (01) | DRG 785 ==
LOC: ER 10:49 → LD 13:42 → MED/SURG 16:50
PROVIDERS: ADMIT Obstetrics & Gynecology Obstetrics; ATTEND Obstetrics & Gynecology Obstetrics
DX: O24.419 Gestational diabetes mellitus in pregnancy, unspecified control; Z30.2 Encounter for sterilization; Z3A.38 38 weeks gestation of pregnancy; Z37.0 Single live birth; O34.211 Maternal care for low transverse scar from previous cesarean delivery; N85.8 Other specified noninflammatory disorders of uterus